=== PATIENT | male | born 1970 | race Caucasian/White ===

== ENCOUNTER 2021-09-09 16:38 | Emergency (ER) | payer OTHER, SELFPAY ==
--- NOTE | ~2021-09-09 | XR_ITS ---
XR knee LT 3V 09/09/2021 19:07 Indication: Left knee pain after twisting injury Procedure: 3 views left knee Comparison: 01/01/2015 Findings: There are surgical changes of ACL reconstruction. There is a large joint effusion. Mild-mod erate tricompartment osteoarthritis. No acute fracture or traumatic malalignment. There is a healed p roximal fibular fracture. Impression: 1: Large suprapatellar joint effusion. Reviewed, dictated and finalized at location A. Impression: 1: Large suprapatellar joint effusion.
[2021-09-09 17:24] VITALS: BP 134/83; PULSE 99; RESP 16; O2SAT 100
--- NOTE | 2021-09-09 19:30 | ED.GENADULT ---
HPI - General Adult General Chief complaint: Extremity Injury, Lower Stated complaint: L KNEE SWELLING [id number] Time Seen by Provider: 09/09/21 18:51 Source: patient Mode of arrival: ambulatory Limitations: no limitations History of Present Illness HPI narrative: Patient presents with chief complaint of left knee swelling intermittently over the past 5 years. Patient reports that he had ACL repair 30 years ago. He reports over the past 5 years he has had intermittent swelling and pain to his left knee. Patient reports he has not had a direct mechanism of injury however he does our work requires him to be up and down working all day. He reports that it puts a lot of strain on his knee. Patient reports he takes Lexapro for his anxiety but does not take any other daily medications. Patient denies any fevers, chills, nausea, vomiting, diarrhea or any other. Related Data Home Medications Medication Instructions Recorded Confirmed escitalopram oxalate mg 09/09/21 Allergies Allergy/AdvReac Type Severity Reaction Status Date / Time No Known Allergies Allergy Verified 09/09/21 19:26 Review of Systems Review of Systems: CONSTITUTIONAL: Denies fever, chills, or sweats. EYES: Denies visual changes, redness, or discharge. ENT: Denies rhinorrhea, congestion, sore throat, or otalgia. CARDIOVASCULAR: Denies chest pain, palpitations, or edema. RESPIRATORY: Denies cough or dyspnea. GASTROINTESTINAL: Denies abdominal pain, nausea, vomiting, or diarrhea. GENITOURINARY: Denies dysuria or hematuria. SKIN: Denies rash or itching. MUSCULOSKELETAL: Reports left knee pain denies back pain, joint pain, or myalgia. NEUROLOGIC: Denies headache, numbness, dizziness, or weakness. PSYCHIATRIC: Denies anxiety or depression. [facility] Family History Family History (Updated 07/10/14 @ 07:13 by DOCTOR UNKNOWN) Mother Family history of Parkinson's disease Family history of Alzheimer's disease Father Family history of heart disease in male family member before age 55 Other Family history of arthritis Family history of malignant neoplasm Social History Social History Smoking status: Heavy tobacco smoker Second hand tobacco smoke exposure: Yes Alcohol intake: current Exam Narrative: GENERAL: Well-appearing, well-nourished, and in no acute distress. HEAD: Normocephalic, atraumatic. EYES: PERRLA and EOMI. EXTREMITIES: Swelling to left knee. Patient reports decreased flexion and extension due to discomfort and pressure. There is not erythema or increased heat from the knee. Bursa appears to be swollen anteriorly. SKIN: Warm, dry, no rash. NEURO: No focal deficits. Alert and oriented x3. PSYCH: Normal mood and affect. Course Vital Signs Vital signs: Vital Signs Pulse Rate 99 09/09/21 17:24 Respiratory Rate 16 09/09/21 17:24 Blood Pressure 134/83 09/09/21 17:24 Pulse Oximetry 100 09/09/21 17:24 Pulse Rate 99 09/09/21 17:24 Respiratory Rate 16 09/09/21 17:24 Blood Pressure 134/83 09/09/21 17:24 Pulse Oximetry 100 09/09/21 17:24 Medical Decision Making MDM Narrative Medical decision making narrative: Discussed with the patient the need to follow industrial specialist for further evaluation and management of his symptoms. Instructed the patient to return to emergency department immediately if he develops any fever, chills, red, hot, streaking from his knee. Vital Signs Vital Signs: Vital Signs Pulse Rate 99 09/09/21 17:24 Respiratory Rate 16 09/09/21 17:24 Blood Pressure 134/83 09/09/21 17:24 Pulse Oximetry 100 09/09/21 17:24 Pulse Rate 99 09/09/21 17:24 Respiratory Rate 16 09/09/21 17:24 Blood Pressure 134/83 09/09/21 17:24 Pulse Oximetry 100 09/09/21 17:24 Imaging Data Radiologist's impression: ITS Impressions Knee X-Ray 09/09/21 19:09 Impression: 1: Large suprapatellar joint effusion. Discharge Plan Discharge Clinical Impres
[2021-09-09] MEDS: KETOROLAC 30 MG/ML VIAL (*BKC) IM (19:53)
== END 2021-09-09 20:24 | disposition home or self-care (01) ==
PROVIDERS: Emergency Provider Emergency Medicine
DX: M70.42 Prepatellar bursitis, left knee (principal); F17.200 Nicotine dependence, unspecified, uncomplicated
CPT/HCPCS: 73562; 96372; 99283; J1885

== ENCOUNTER 2021-09-19 11:42 | Emergency (ER) | payer OTHER, SELFPAY ==
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
--- NOTE | ~2021-09-19 | XR_ITS ---
EXAMINATION: XR_CERV2-3V_CR, XR thoracic spine 2V, XR lumbar spine 2-3V DATE: 09/19/2021 13:15 INDICATION: Neck and back pain TECHNIQUE: 1. AP, lateral and odontoid views of the cervical spine were obtained. 2. AP, lateral and lateral swimmers views of the thoracic spine were obtained. 3. AP, lateral and cone-down lateral lumbosacral views of the lumbar spine were obtained. COMPARISON: CT cervical spine and chest radiograph dated 01/04/[address] abdomen and pelvis and AP a nd lateral chest radiographs dated 05/11/2018 FINDINGS: Cervical spine: New 2-3 mm anterolisthesis C4 on C5 with associated mild kyphosis. There are compression fractures of the anterior superior endplates of both C5 and C6 with mild anterior vertebral body height loss at b oth levels which are new since the prior CT. Mild to moderate disc height loss at both levels. Dens i s intact. Prevertebral soft tissues are normal. Thoracic spine: 17 degree mid thoracic dextroscoliosis with mild compensatory levocurvature in the upper thoracic and lumbosacral spine. Unchanged mild left-sided vertebral body height loss at T6 and T7. Chronic mild a nterior wedging at T12 but with increased mild right-sided vertebral body height loss which appears n ew since 01/04/2019. Thoracic disc spaces are normal. Paravertebral soft tissues and visualized lungs are unremarkable. No pleural effusion or pneumothorax. Cardiomediastinal silhouette is normal. Jaye cystectomy clips in the right upper quadrant. Lumbar spine: Mild lumbar dextrocurvature. Minimal retrolisthesis L2 on L3, L3 on L4 and L4 on L5 and mild retrolis thesis of L5 on S1 of which appear unchanged since CT dated . Chronic L1 compression fractur e with 20% anterior vertebral body height loss. Mild disc height loss at L1-L2 through L4-L5. Sacrum and bilateral sacralized joints are unremarkable. Mild bilateral hip osteoarthritis. IMPRESSION: 1. Mild cervical and lumbar spondylosis. 2. Mild midthoracic dextroscoliosis. 3. A few chronic appearing mild compression fractures in the lower cervical, lower thoracic and upper lumbar spine as detailed above, a few of which appear new since the studies performed over 2 years p rior. Reviewed, dictated and finalized at location A. NERATOR OPERATOR IMPRESSION: 1. Mild cervical and lumbar spondylosis. 2. Mild midthoracic dextroscoliosis. 3. A few chronic appearing mild compression fractures in the lower cervical, lo wer thoracic and upper lumbar spine as detailed above, a few of which appear ne w since the studies performed over 2 years prior. IMPRESSION: 1. Mild cervical and lumbar spondylosis. 2. Mild midthoracic dextroscoliosis. 3. A few chronic appearing mild compression fractures in the lower cervical, lo wer thoracic and upper lumbar spine as detailed above, a few of which appear ne w since the studies performed over 2 years prior.
[2021-09-19 11:43] VITALS: BP 128/74; PULSE 97; RESP 13; TEMP 36.6; O2SAT 100
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
[2021-09-19 13:37] LABS: Basophils Percent Auto 0.3 % (0.2-1.2); Eosinophils Absolute Auto 0.2 K/mm3 (0-0.3); Eosinophils Percent Auto 1.7 % (0-4.4); Hematocrit 40.6 % (42.0-52.0); Hemoglobin 13.9 g/dL (14.0-18.0); Immature Granulocyte Absolute 0.03 K/mm3 (0.00-0.031); Immature Granulocyte Percent A 0.3 % (0-0.5); Lymphocytes Absolute Auto 1.95 K/mm3 (0.9-3.2); Lymphocytes Percent Auto 19.9 % (18.3-44.2); Mean Corpuscular HGB Conc 34.2 g/dl (32-36); Mean Corpuscular Hemoglobin 31.1 pg (26-34); Mean Corpuscular Volume 90.8 fl (80-100); Mean Platelet Volume 8.1 fl (7.4-10.4); Monocytes Absolute Auto 0.8 K/mm3 (0.1-0.6); Monocytes Percent Auto 7.8 % (2.6-8.5); Neutrophils Absolute Auto 6.9 K/mm3 (1.3-6.7); Platelet Count Result 348 k/mm3 (150-375); Red Blood Count 4.47 M/mm3 (4.6-6.20); Red Cell Distribution Width 14.5 % (11.5-14.5); White Blood Count 9.8 K/mm3 (4.5-10.0)
[2021-09-19 13:48] LABS: Alanine Aminotransferase 17 U/L (4-50); Albumin Level 4.4 g/dL (3.5-5.1); Alkaline Phosphatase 79 U/L (38-126); Anion Gap 11 mmol/L (8-16); Aspartate Amino Transferase 28 U/L (17-59); Bilirubin,Total 0.6 mg/dL (0.2-1.3); Blood Urea Nitrogen 8 mg/dL (9-20); Calcium 9.2 mg/dL (8.4-10.2); Carbon Dioxide 21 mmol/L (22-30); Chloride 104 mmol/L (98-107); Estimated CRCL calculation 104 ml/min; Estimated Glomerular Filt Rate > 60; Glucose 89 mg/dL (65-110); Potassium 3.8 mmol/L (3.4-5.0); Sodium 136 mmol/L (137-145)
[2021-09-19 14:10] VITALS: BP 136/92; PULSE 88; RESP 16; O2SAT 97
[2021-09-19 15:55] VITALS: BP 152/68; PULSE 90; RESP 16; O2SAT 99
[2021-09-19 16:10] LABS: Add Urine Microscopic? NO; Appearance Urine Clear (Clear); Bilirubin Urine Negative (Negative); Blood Urine Negative (Negative); Color Urine Yellow (Yellow); Glucose Urine UA Negative (Negative); Ketones Urine Negative (Negative); Leukocyte Esterase Ur Negative LEU/UL (Negative); Nitrate Urine Negative (Negative); Protein Urine Negative (Negative); Specific Grav Ur 1.009 (1.001-1.035); Urobilinogen Urine Negative mg/dL (<2.0)
[2021-09-19] MEDS: SODIUM CHLORIDE 0.9% IV 1,000 ML 999 ML IV CONT (16:17)
[2021-09-19] MEDS: MORPHINE SULFATE (*CRX) 4 MG/ML INJ IV PUSH ×2 (16:18→20:41)
--- NOTE | 2021-09-19 19:59 | PC.NURSE ---
RN made call to pts daughter, Dominique, to pick him up, but unable to get in touch with family or leave message. states that call can not be completed at this time.
--- NOTE | 2021-09-19 20:05 | PC.NURSE ---
was able to get new phone number for daughter [phone], and able to get in contact with her. will be ready in approx 15min
[2021-09-19 20:45] VITALS: BP 120/91; PULSE 122; RESP 28; O2SAT 98
--- NOTE | 2021-09-19 20:48 | PC.NURSE ---
when RN went to take D/C vitals prior to D/C from ER, RN noted that HR was 120. double checked with Dr. Vinson, new order for Morphine IV due to increased pain to L shoulder. Rn called daughter and told her that he was not ready for D/C yet and Rn will call once vitals are WNL and pain better.
[2021-09-19 21:56] VITALS: BP 140/80; PULSE 97; RESP 14; O2SAT 100
--- NOTE | 2021-09-19 21:57 | PC.NURSE ---
called daughter to picker operator, pt waiting in waiting room in W/C.
== END 2021-09-19 21:58 | disposition home or self-care (01) ==
PROVIDERS: Emergency Provider Emergency Medicine
DX: S22.42XA Multiple fractures of ribs, left side, initial encounter for closed fracture (principal); S42.022A Displaced fracture of shaft of left clavicle, initial encounter for closed fracture; M47.812 Spondylosis without myelopathy or radiculopathy, cervical region; M47.816 Spondylosis without myelopathy or radiculopathy, lumbar region; M16.0 Bilateral primary osteoarthritis of hip; K57.90 Diverticulosis of intestine, part unspecified, without perforation or abscess without bleeding; N40.0 Benign prostatic hyperplasia without lower urinary tract symptoms; V13.4XXA Pedal cycle driver injured in collision with car, pick-up truck or van in traffic accident, initial encounter; Y93.55 Activity, bike riding; F17.200 Nicotine dependence, unspecified, uncomplicated
CPT/HCPCS: 36415; 70450; 72040; 72070; 72100; 72125; 73030; 74177; 80053; 81003; 85025; 96361; 96374; 96376; 99284; A4565; J2270; J7030; Q9967

== ENCOUNTER 2022-03-09 16:59 | Emergency (ER) | payer OTHER, SELFPAY ==
[2022-03-09 17:05] VITALS: BP 119/91; PULSE 107; RESP 20; TEMP 36.5; O2SAT 100
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
[2022-03-09] MEDS: predniSONE 20 MG TABLET 40 MG PO (18:20)
[2022-03-09] MEDS: diphenhydrAMINE HCl CAP 25 MG CAPSULE 50 MG PO (18:20)
== END 2022-03-09 18:49 | disposition home or self-care (01) ==
PROVIDERS: Emergency Provider Nurse Practitioner Family; PCP Physician Assistant
DX: L23.7 Allergic contact dermatitis due to plants, except food (principal); F17.200 Nicotine dependence, unspecified, uncomplicated
CPT/HCPCS: 99283; A9270; J7512

== ENCOUNTER → 2023-04-07 16:11 | Outpatient (CLI) | payer OTHER, SELFPAY ==
--- NOTE | ~2023-04-07 | XR_ITS ---
EXAMINATION: XR chest 2V DATE: 04/07/2023 16:28 INDICATION: Rheumatoid arthritis. Smoker. TECHNIQUE: Frontal and lateral views of the chest were obtained. COMPARISON: Chest single view 01/04/2019, CT abdomen and pelvis 09/19/21 FINDINGS: A calcified right lung nodule is consistent with old granulomatous disease. No pleural effu evon or pneumothorax. The heart size is normal. There are old healed left rib fractures. There is a c hronic compression fracture of T12. There is an old healed fracture of left clavicle. IMPRESSION: 1. No acute cardiopulmonary disease. Reviewed, dictated and finalized at location E.
== END ==
PROVIDERS: PCP Physician Assistant; Visit Provider Physician Assistant
DX: M06.9 Rheumatoid arthritis, unspecified (principal)
CPT/HCPCS: 71046

== ENCOUNTER 2023-05-12 17:37 | Emergency (ER) | payer OTHER, SELFPAY ==
--- NOTE | 2023-05-12 17:47 | ED.SKABFB ---
HPI - Skin/Abscess/Foreign Bdy General Chief complaint: Skin/Abscess/Foreign Body Stated complaint: rash on body Time Seen by Provider: 05/12/23 17:47 Source: patient, RN notes reviewed and old records reviewed Mode of arrival: ambulatory Limitations: no limitations History of Present Illness HPI narrative: 52-year-old male presents to the [facility] with red rash to his face, neck and bilateral arms. Patient is not giving a full history, anxious. History of poison chelo per record Attempted to explain to patient that we need to complete a medical record and we need questions answered. Patient unsure of past medical or surgical history. Not sure of medication he takes. Has not taken anything for the itching. States the red rash started this morning States he was pulling weeds and was sweating too much yesterday Treatments prior to arrival: none Related Data Allergies Allergy/AdvReac Type Severity Reaction Status Date / Time No Known Allergies Allergy Verified 05/12/23 17:38 Review of Systems Review of Systems: All systems reviewed & are unremarkable except as noted in HPI and below Constitutional: Constitutional: Reports no additional constitutional complaints Eyes: Eyes: Reports no additional eye complaints ENT: Reports system reviewed and no additional complaints, except as documented Cardiovascular: Cardiovascular: Reports no additional cardiovascular complaints, Denies chest pain and Denies dyspnea Respiratory: Respiratory: Reports no additional respiratory complaints, Denies chest congestion, Denies cough and Denies dyspnea Gastrointestinal: Gastrointestinal: Reports no additional gastrointestinal complaints, Denies abdominal pain, Denies nausea and Denies vomiting Musculoskeletal: Musculoskeletal: Reports no additional musculoskeletal complaints Integumentary/Breasts: Skin/Breast: Reports as per HPI Neurologic: Reports system reviewed and no additional complaints, except as documented Psychiatric: Psychiatric: Reports no additional psychiatric complaints Allergic/Immunologic: Allergic/Immunologic: Reports no additional allergic/immunologic complaints [facility] Family History Family History Mother Family history of Parkinson's disease Family history of Alzheimer's disease Father Family history of heart disease in male family member before age 55 Other Family history of arthritis Family history of malignant neoplasm Social History Social History Smoking status: Heavy tobacco smoker Second hand tobacco smoke exposure: Yes Alcohol intake: current Comments At the time of my signature, I reviewed and agree with the nursing past medical, surgical, social, and family history. There is no relevant family history pertinent to the patient complaint. Exam Const: General: healthy appearing, no acute distress, well developed, alert, anxious and well nourished Nutritional Appearance: well nourished Orientation/consciousness: patient oriented x3 Limitations: no limitations HENMT: Head: normal to inspection, no abrasions and no lacerations Ears: hearing grossly normal bilaterally, external ears normal, TM's normal bilaterally and EAC's normal Face/Nose/Sinus: Normal external nose present, Normal nares present, Normal nasal mucous membranes and turbinates present, No nasal discharge present and normal facial exam Face and sinus: normal facial exam, face symmetric and no tenderness Mouth: Yes Normal oral and palatal mucosa present, Yes lip normal, Yes tongue normal, Yes moist mucous membranes and No muffled voice Throat: posterior oropharynx normal, uvula midline and no uvular edema Eyes: General: appearance normal, both eyes and all related structures Visual Veloz: normal visual veloz by confrontation Alignment and Position: alignment normal Pupils: Equal, round and reactive pupils present EOM: EOMs
[2023-05-12 17:49] VITALS: BP 128/111; PULSE 79; RESP 16; TEMP 36.4; O2SAT 98
== END 2023-05-12 18:00 | disposition home or self-care (01) ==
PROVIDERS: Emergency Provider Nurse Practitioner; PCP Physician Assistant
DX: L25.9 Unspecified contact dermatitis, unspecified cause (principal); F17.200 Nicotine dependence, unspecified, uncomplicated
CPT/HCPCS: 99213; G0463

== ENCOUNTER 2023-07-06 11:22 | Emergency (ER) | payer OTHER, SELFPAY ==
--- NOTE | 2023-07-06 11:24 | ED.SKABFB ---
HPI - Skin/Abscess/Foreign Bdy General Chief complaint: Skin/Abscess/Foreign Body Stated complaint: Rash Time Seen by Provider: 07/06/23 11:23 Source: patient Mode of arrival: ambulatory Limitations: no limitations History of Present Illness HPI narrative: Patient is a 53-year-old male that presents with rash all over body but primarily right beck. Reports it itches and continues to spread. Patient states for 5 days ago he was out pulling weeds and rash started that night. Patient has history of poison chelo and poison sumac rashes. Patient has been using calamine lotion and Benadryl with mild relief. Patient also does not have running water at his house at this time. Patient is a poor historian denies any shortness of breath Related Data Home Medications Medication Instructions Recorded Confirmed escitalopram oxalate 20 mg tablet mg 07/06/23 07/06/23 Allergies Allergy/AdvReac Type Severity Reaction Status Date / Time No Known Allergies Allergy Verified 07/06/23 11:27 Review of Systems Review of Systems: All systems reviewed & are unremarkable except as noted in HPI and below Constitutional: Constitutional: Denies body ache(s), Denies chills, Denies fatigue, Denies fever(s), Denies headache(s), Denies malaise and Denies weakness Eyes: Eyes: Denies blurry vision, Denies irritation and Denies loss of vision ENT: Denies otalgia, Denies headache(s), Denies nasal discharge, Denies sinus pain and Denies sore throat Cardiovascular: Cardiovascular: Denies chest pain, Denies irregular heart rhythm and Denies dyspnea Respiratory: Respiratory: Denies dyspnea Gastrointestinal: Gastrointestinal: Denies abdominal pain, Denies melena, Denies hematochezia, Denies diarrhea, Denies nausea and Denies vomiting Musculoskeletal: Musculoskeletal: Denies back pain, Denies myalgias and Denies arthralgias Integumentary/Breasts: Skin/Breast: Reports pruritus and Reports rash Neurologic: Denies headache(s), Denies loss of vision and Denies weakness Psychiatric: Psychiatric: Reports no additional psychiatric complaints Endocrine: Endocrine: Denies fatigue [facility] Family History Family History Mother Family history of Parkinson's disease Family history of Alzheimer's disease Father Family history of heart disease in male family member before age 55 Other Family history of arthritis Family history of malignant neoplasm Social History Social History Smoking status: Heavy tobacco smoker Second hand tobacco smoke exposure: Yes Alcohol intake: current Comments At time of signature, agree with nursing past medical, surgical, social and family history. There is no relevant family history pertinent to the presenting complaint. Exam Const: General: cooperative, healthy appearing, comfortable, no acute distress and well nourished Nutritional Appearance: well nourished Orientation/consciousness: patient oriented x3 Limitations: no limitations HENMT: Head: normal to inspection, normocephalic and atraumatic Ears: hearing grossly normal bilaterally and external ears normal Face/Nose/Sinus: Normal external nose present, normal facial exam and face symmetric Face and sinus: normal facial exam and face symmetric Mouth: Yes lip normal Eyes: General: appearance normal, both eyes and all related structures Alignment and Position: alignment normal and position normal Periorbital: periorbital findings normal Eyelids: eyelids normal Pupils: Equal, round and reactive pupils present EOM: EOMs intact bilaterally Neck: Neck: normal visual inspection, full ROM and supple Chest: Chest palpation & inspection: normal inspection of the chest Resp: Effort & Inspection: normal respiratory effort and able to speak in complete sentences Auscultation: clear to auscultation bilaterally Cardio: Rate: regular rate Rhythm: regular rhy
[2023-07-06 11:28] VITALS: BP 103/76; PULSE 104; RESP 16; TEMP 37.3; O2SAT 100
== END 2023-07-06 11:49 | disposition home or self-care (01) ==
PROVIDERS: Emergency Provider Nurse Practitioner Family
DX: L23.7 Allergic contact dermatitis due to plants, except food (principal); F17.200 Nicotine dependence, unspecified, uncomplicated; F41.9 Anxiety disorder, unspecified; F32.A Depression, unspecified; M19.90 Unspecified osteoarthritis, unspecified site
CPT/HCPCS: 99213; G0463

== ENCOUNTER 2023-10-30 10:02 | Emergency (ER) | payer OTHER, SELFPAY ==
--- NOTE | ~2023-10-30 | CT_ITS ---
EXAMINATION: CT cervical spine wo con DATE: 10/30/2023 11:55 INDICATION: Head injury TECHNIQUE: Computed tomography (CT) of the cervical spine was performed without intravenous contrast. The dose-length product (DLP) was 210.98 mGy-cm. Automated exposure control and iterative reconstruc tion technique were employed. COMPARISON: 09/19/2021 FINDINGS: Kyphosis of the cervical spine is again noted. There are 2 mm of stable anterolisthesis of C3 on C4. There is moderate loss of intervertebral disc space height at C4-5 and C5-C6. There is no f racture. The odontoid process is intact. There is multilevel moderate facet and uncovertebral joint o steoarthritis. Prevertebral soft tissues are normal. IMPRESSION: 1. Mild cervical spondylosis without acute findings or significant interval change. Reviewed, dictated and finalized at location B. LICENSED NUCLEAR PLANT OPERATOR IMPRESSION: 1. Mild cervical spondylosis without acute findings or significant interval boo nge.
--- NOTE | ~2023-10-30 | CT_ITS ---
EXAMINATION: CT brain wo con INDICATION: Head injury COMPARISON: 09/19/2021 TECHNIQUE: Standard unenhanced head CT. The dose-length product (DLP) was 605.33 mGy-cm. The mA was a djusted according to patient size. Iterative reconstruction technique was employed. FINDINGS: No intracranial hemorrhage, acute infarction, or abnormal mass lesion. The ventricles are n ormal. No abnormal mass effect or midline shift. The hobbs-white matter differentiation is normal. The basal cisterns are patent. The orbits are normal. There is a left parietal scalp hematoma. There is near complete opacification of the frontal sinuses and ethmoidal air cells. There is moderate opacifi cation of the bilateral maxillary sinuses and the sphenoid sinuses. IMPRESSION: 1. No acute intracranial abnormality. 2. Pansinusitis. Reviewed, dictated and finalized at location B. ILE TECHNICAL OFFICER
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
--- NOTE | ~2023-10-30 | XR_ITS ---
EXAMINATION: XR hip RT 2V w AP pelvis INDICATION: Right hip pain TECHNIQUE: AP view of the pelvis and two views of the right hip are obtained. COMPARISON: 03/19/2015 FINDINGS: Bone alignment is normal. There is no fracture. There is mild osteoarthritis of the hips. IMPRESSION: 1. Mild osteoarthritis of the hips. Reviewed, dictated and finalized at location B. LAND FIREFIGHTER
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
[2023-10-30 10:05] VITALS: BP 94/66; PULSE 99; RESP 18; TEMP 37.1; O2SAT 100
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
== END 2023-10-30 12:44 | disposition home or self-care (01) ==
PROVIDERS: Emergency Provider Physician Assistant; PCP Internal Medicine
DX: S86.912A Strain of unspecified muscle(s) and tendon(s) at lower leg level, left leg, initial encounter (principal); S09.90XA Unspecified injury of head, initial encounter; V19.9XXA Pedal cyclist (driver) (passenger) injured in unspecified traffic accident, initial encounter
CPT/HCPCS: 70450; 72125; 73502; 73564; 99284

== ENCOUNTER 2024-01-01 17:24 | Emergency (ER) | payer OTHER, SELFPAY ==
--- NOTE | ~2024-01-01 | XR_ITS ---
EXAM: XR hip BI 2V w AP pelvis DATE: 01/01/2024 19:06 HISTORY: pain right hip hurts worse than the left no injury . COMPARISON: 10/30/2023. FINDINGS: Normal mineralization. No fracture or dislocation. No lytic or blastic lesion. Lumbar dege nerative disc disease. Moderate right and mild left hip osteoarthritis. No erosion or periosteal hinojosa ge. Soft tissues within normal limits. IMPRESSION: No acute osseous finding in the pelvis or bilateral hips. Reviewed, dictated and finalized at location K. RY CAR DRIVER
--- NOTE | ~2024-01-01 | XR_ITS ---
EXAM: XR foot LT 2V DATE: 01/01/2024 19:06 HISTORY: pain . COMPARISON: None available. FINDINGS: Normal mineralization. No fracture or dislocation. No lytic or blastic lesion. Joint space s are maintained. Plantar enthesopathy. No erosion or periosteal change. Forefoot soft tissue swellin g. IMPRESSION: No acute osseous finding in the left foot. Reviewed, dictated and finalized at location K. ET ASSISTANT PRESS OPERATOR
[2024-01-01 18:01] VITALS: BP 126/82; PULSE 114; RESP 20; TEMP 36.4; O2SAT 98
--- NOTE | 2024-01-01 18:27 | ED.GENADULT ---
HPI - General Adult General Chief complaint: Back Pain/Injury <Niyah Sol, SOFTWARE ENGINEER WEB APPLICATIONS - Last Filed: 01/01/24 18:33> Stated complaint: back pain <Niyah Jenkins March, SOFTWARE ENGINEER WEB APPLICATIONS - Last Filed: 01/01/24 18:33> Time Seen by Provider: 01/01/24 18:28 <Niyah Jenkins March, SOFTWARE ENGINEER WEB APPLICATIONS - Last Filed: 01/01/24 18:33> Focused HPI: Kamron Pate is a 53 y/o male who presents with reports of having pain to his right hip for about a week - he states that he dislocated it when he was in his 20's. He states the pain is really bad when he tries to walk or when he first gets up. He has not taken anything for pain today He rates his pain at a 7 or 8/10 pain is non radiating. Patient also would like his left foot looked at. He states that it started to get swollen and painful yesterday - he states hx of Gout and feels like that but he states he has never had this much swelling with it Denies any trauma or injury to foot. GENERAL: Well-appearing, well-nourished, and in no acute distress. HEAD: Normocephalic, atraumatic. CHEST: Clear to auscultation. ?No respiratory distress. HEART: Regular rate and rhythm.? NEURO: ?Alert and oriented x3. Patient screened in triage and initial orders placed.? ?Additional care and disposition to be based upon?diagnostic testing and treatment. <Niyah Jenkins March, SOFTWARE ENGINEER WEB APPLICATIONS - Last Filed: 01/01/24 18:33> History of Present Illness HPI narrative: 53-year-old male with a reported history of gout reports for evaluation for right hip pain that started about 1 week ago. Patient states he dislocated his hip and his anger and since then has had chronic hip pain. States it is worse in the past week because he ?irritated?. He is unsure how. States it hurts worse when he walks but is currently not hurting. Denies radiating pain. He is also reporting pain and swelling in his left foot that started a couple days ago. Denies injury. States it feels like prior gout attacks. States he drinks beer. <Sushila Hernandez PA-C - Last Filed: 01/01/24 23:21> Related Data Home medications: Home Medications Medication Instructions Recorded Confirmed escitalopram oxalate 20 mg tablet mg 07/06/23 07/06/23 <Niyah Sol, SOFTWARE ENGINEER WE[employer]PLICATIONS - Last Filed: 01/01/24 18:33> Allergies/adverse reactions: Allergies Allergy/AdvReac Type Severity Reaction Status Date / Time No Known Allergies Allergy Verified 01/01/24 22:01 <Niyah Sol, SOFTWARE ENGINEER WE[employer] APPLICATIONS - Last Filed: 01/01/24 18:33> Review of Systems Review of Systems: CONSTITUTIONAL: Denies fever, chills, or sweats. EYES: Denies visual changes, redness, or discharge. ENT: Denies rhinorrhea, congestion, sore throat, or otalgia. CARDIOVASCULAR: Denies chest pain, palpitations, or edema. RESPIRATORY: Denies cough or dyspnea. GASTROINTESTINAL: Denies abdominal pain, nausea, vomiting, or diarrhea. GENITOURINARY: Denies dysuria or hematuria. SKIN: Denies rash or itching. MUSCULOSKELETAL: See HPI NEUROLOGIC: Denies headache, numbness, or weakness. PSYCHIATRIC: Denies anxiety or depression. <Sushila Hernandez PA-C - Last Filed: 01/01/24 23:21> PMFSH Family History Family History: Family History Mother Family history of Parkinson's disease Family history of Alzheimer's disease Father Family history of heart disease in male family member before age 55 Other Family history of arthritis Family history of malignant neoplasm <Niyah Sol, - Last Filed: 01/01/24 18:33> Social History Social History: Social History Smoking status: Heavy tobacco smoker Second hand tobacco smoke exposure: Yes Alcohol intake: current <Niyah Sol, SOFTWARE ENGINEER WE[employer] APPLICATIONS - Last Filed: 01/01/24 18:33> Exam Narrative: GENERAL: Well-appearing, well-nourished, and in no acute distress. HEAD: Normocephalic, atraumatic. EYES: PERRLA and EOMI. ENT: Nares clear, no rhinorrhea or epistaxis. Mucous
[2024-01-01] MEDS: KETOROLAC 30 MG/ML VIAL (*BKC) IM (18:46)
[2024-01-01] MEDS: ACETAMINOPHEN 500 MG TABLET 1000 MG PO (18:46)
[2024-01-01] MEDS: CYCLOBENZAPRINE HCL 10 MG TABLET PO (18:47)
[2024-01-01 18:50] VITALS: BP 130/86; PULSE 100; RESP 17; O2SAT 100
[2024-01-01 22:27] LABS: Basophils Percent Auto 0.4 % (0.2-1.2); Eosinophils Absolute Auto 0.1 K/mm3 (0-0.3); Eosinophils Percent Auto 1.6 % (0-4.4); Hematocrit 34.5 % (42.0-52.0); Hemoglobin 11.6 g/dL (14.0-18.0); Immature Granulocyte Absolute 0.02 K/mm3 (0.00-0.031); Immature Granulocyte Percent A 0.4 % (0-0.5); Lymphocytes Absolute Auto 1.91 K/mm3 (0.9-3.2); Lymphocytes Percent Auto 33.7 % (18.3-44.2); Mean Corpuscular HGB Conc 33.6 g/dl (32-36); Mean Corpuscular Hemoglobin 29.7 pg (26-34); Mean Corpuscular Volume 88.2 fl (80-100); Mean Platelet Volume 8.5 fl (7.4-10.4); Monocytes Absolute Auto 0.8 K/mm3 (0.1-0.6); Monocytes Percent Auto 13.4 % (2.6-8.5); Neutrophils Absolute Auto 2.9 K/mm3 (1.3-6.7); Neutrophils Percent Auto 50.5 % (45.5-73.1); Platelet Count Result 319 k/mm3 (150-375); Red Blood Count 3.91 M/mm3 (4.6-6.20); Red Cell Distribution Width 12.3 % (11.5-14.5); White Blood Count 5.7 K/mm3 (4.5-10.0)
[2024-01-01 22:45] LABS: Anion Gap 6 mmol/L (8-16); Blood Urea Nitrogen 18 mg/dL (9-20); Carbon Dioxide 26 mmol/L (22-30); Chloride 100 mmol/L (98-107); Estimated CRCL calculation 78 ml/min; Estimated Glomerular Filt Rate > 60; Glucose 107 mg/dL (65-110); Potassium 3.8 mmol/L (3.4-5.0); Sodium 132 mmol/L (137-145); Uric Acid 4.5 mg/dL (3.5-8.5)
== END 2024-01-01 23:27 | disposition home or self-care (01) ==
PROVIDERS: Nurse Practitioner Family; Emergency Provider Physician Assistant; PCP Internal Medicine
DX: G57.01 Lesion of sciatic nerve, right lower limb (principal); M10.9 Gout, unspecified; F17.200 Nicotine dependence, unspecified, uncomplicated
CPT/HCPCS: 36415; 73521; 73620; 80048; 84550; 85025; 96372; 99284; A9270; J1885

== ENCOUNTER 2024-01-10 05:07 | Emergency (ER) | payer OTHER, SELFPAY ==
--- NOTE | ~2024-01-10 | XR_ITS ---
Left foot Technique: AP, oblique, and lateral views were obtained. Clinical History: Pain and swelling Findings: Suspected fracture the plantar aspect of the base of the second proximal phalanx.. Joint sp aces are preserved without erosive or degenerative change. Soft tissues are unremarkable. Impression: Suspected fracture the plantar aspect of the base of second proximal phalanx. Correlate for point ten derness. Reviewed, dictated and finalized at location . R GRINDER OPERATOR Impression: Suspected fracture the plantar aspect of the base of second proximal phalanx. C orrelate for point tenderness.
--- NOTE | ~2024-01-10 | XR_ITS ---
Right wrist Technique: PA, oblique, lateral, and ulnar deviation views were obtained. Clinical History: Pain COMPARISON: 11/27/2017 Findings: Patient is status post prior ORIF of the scaphoid. There is linear lucency through the prox imal third of the scaphoid. Additional orthopedic hardware present at the fifth metacarpal. Osseous a lignment is unchanged from prior exam. There are mild degenerative change of the first CMC joint and triscaphe joint. Soft tissues are unremarkable. Impression: Fracture line through the proximal third of the scaphoid with prior ORIF of the scaphoid. It is somew hat unclear whether this represents chronic nonunited fracture versus new acute fracture of the scaph oid. Correlate for anatomic snuffbox tenderness. Reviewed, dictated and finalized at [facility]. 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 It is somewhat unclear whether this represents chronic nonunited fra cture versus new acute fracture of the scaphoid. Correlate for anatomic snuffbo x tenderness.
[2024-01-10 05:06] VITALS: BP 105/64; PULSE 82; RESP 18; TEMP 36.9; O2SAT 100
[2024-01-10 05:15] VITALS: BP 105/64; PULSE 81; RESP 18; TEMP 36.9; O2SAT 100
--- NOTE | 2024-01-10 06:02 | ED.GENADULT ---
HPI - General Adult General Chief complaint: Extremity Injury, Upper Stated complaint: swollen wrist Time Seen by Provider: 01/10/24 05:20 History of Present Illness HPI narrative: Patient is a 53-year-old gentleman who presents emerged from with chief complaint of fall. Patient reports he tripped and fell in the month he has the new left foot and his right wrist. Patient denies head injury denies loss of consciousness reports the pain with range of motion Related Data Home Medications Medication Instructions Recorded Confirmed escitalopram oxalate 20 mg tablet mg 07/06/23 07/06/23 Allergies Allergy/AdvReac Type Severity Reaction Status Date / Time No Known Allergies Allergy Verified 01/01/24 22:01 Review of Systems Review of Systems: A 10 system review of systems was completed on the patient and is negative except for what is stated in the HPI. Nursing and ancillary documentation was reviewed. [facility] Family History Family History Mother Family history of Parkinson's disease Family history of Alzheimer's disease Father Family history of heart disease in male family member before age 55 Other Family history of arthritis Family history of malignant neoplasm Social History Social History Smoking status: Heavy tobacco smoker Second hand tobacco smoke exposure: Yes Alcohol intake: current Exam Narrative: GENERAL: Well-appearing, well-nourished, and in no acute distress. HEAD: Normocephalic, atraumatic. EYES: PERRLA and EOMI. ENT: Nares clear, no rhinorrhea or epistaxis. Mucous membranes moist. NECK: Supple. CHEST: Clear to auscultation. No respiratory distress. HEART: Regular rate and rhythm. No murmur heard. Normal peripheral pulses. ABDOMEN: Soft, nontender, nondistended, normal active bowel sounds. EXTREMITIES: Normal range of motion. No edema. Tenderness palpation the right wrist left foot SKIN: Warm, dry, no rash. NEURO: No focal deficits. Alert and oriented x3. PSYCH: Normal mood and affect. Course Vital Signs Vital signs: Vital Signs Temperature 36.9 C 01/10/24 05:06 Pulse Rate 82 01/10/24 05:06 Respiratory Rate 18 01/10/24 05:06 Blood Pressure 105/64 01/10/24 05:06 Pulse Oximetry 100 02/28/24 05:06 Oxygen Delivery Room Air 01/10/24 05:06 Temperature 36.9 C 01/10/24 05:15 Pulse Rate 81 01/10/24 05:15 Respiratory Rate 18 01/10/24 05:15 Blood Pressure 105/64 01/10/24 05:15 Pulse Oximetry 100 01/10/24 05:15 Oxygen Delivery Room Air 01/10/24 05:06 Medical Decision Making [facility] Narrative Medical decision making narrative: Differential diagnosis includes fracture, contusion, sprain X-ray of the left foot shows evidence of a 2nd proximal phalanx fracture. Wrist x-ray shows a possible scaphoid fracture The patient will be placed in a postop shoe and also placed a thumb spica splint patient will be referred to Orthopedics Vital Signs Vital Signs: Vital Signs Temperature 36.9 C 01/10/24 05:06 Pulse Rate 82 01/10/24 05:06 Respiratory Rate 18 01/10/24 05:06 Blood Pressure 105/64 01/10/24 05:06 Pulse Oximetry 100 01/10/24 05:06 Oxygen Delivery Room Air 01/10/24 05:06 Temperature 36.9 C 01/10/24 05:15 Pulse Rate 81 01/10/24 05:15 Respiratory Rate 18 01/10/24 05:15 Blood Pressure 105/64 01/10/24 05:15 Pulse Oximetry 100 01/10/24 05:15 Oxygen Delivery Room Air 01/10/24 05:06 Discharge Plan Discharge Clinical Impression: Fracture of scaphoid Qualifiers: Encounter type: initial encounter Scaphoid bone location: unspecified portion of scaphoid Fracture type: closed Fracture alignment: nondisplaced Laterality: right Qualified Code(s): S62.001A - Unspecified fracture of navicular [scaphoid] bone of right wrist, initial encounter for closed fracture
[2024-01-10] MEDS: HYDROcodone/acetaminophen (*CRX) 5-325 MG TABLET 1 TAB PO (06:57)
== END 2024-01-10 07:00 | disposition home or self-care (01) ==
PROVIDERS: Emergency Provider Emergency Medicine; PCP Internal Medicine
DX: S62.031A Displaced fracture of proximal third of navicular [scaphoid] bone of right wrist, initial encounter for closed fracture (principal); S92.515A Nondisplaced fracture of proximal phalanx of left lesser toe(s), initial encounter for closed fracture; F17.200 Nicotine dependence, unspecified, uncomplicated; W01.0XXA Fall on same level from slipping, tripping and stumbling without subsequent striking against object, initial encounter
CPT/HCPCS: 29125; 73110; 73630; 99284; A4565; A9270

== ENCOUNTER 2024-01-26 15:15 | Emergency (ER) | payer OTHER, MEDICAID, SELFPAY ==
[2024-01-26 15:16] VITALS: BP 116/72; PULSE 98; RESP 19; TEMP 36.4; O2SAT 99
[2024-01-26 15:59] LABS: Basophils Percent Auto 0.3 % (0.2-1.2); Eosinophils Absolute Auto 0.1 K/mm3 (0-0.3); Eosinophils Percent Auto 0.9 % (0-4.4); Hematocrit 33.8 % (42.0-52.0); Hemoglobin 11.4 g/dL (14.0-18.0); Immature Granulocyte Absolute 0.04 K/mm3 (0.00-0.031); Immature Granulocyte Percent A 0.5 % (0-0.5); Lymphocytes Absolute Auto 1.66 K/mm3 (0.9-3.2); Lymphocytes Percent Auto 21.9 % (18.3-44.2); Mean Corpuscular HGB Conc 33.7 g/dl (32-36); Mean Corpuscular Hemoglobin 29.2 pg (26-34); Mean Corpuscular Volume 86.4 fl (80-100); Mean Platelet Volume 8.6 fl (7.4-10.4); Monocytes Absolute Auto 0.7 K/mm3 (0.1-0.6); Neutrophils Absolute Auto 5.1 K/mm3 (1.3-6.7); Neutrophils Percent Auto 67.4 % (45.5-73.1); Platelet Count Result 424 k/mm3 (150-375); Red Blood Count 3.91 M/mm3 (4.6-6.20); Red Cell Distribution Width 13.1 % (11.5-14.5); White Blood Count 7.6 K/mm3 (4.5-10.0)
[2024-01-26 16:11] LABS: Uric Acid 5.9 mg/dL (3.5-8.5)
[2024-01-26 16:13] LABS: Alanine Aminotransferase 39 U/L (6-50); Albumin Level 3.8 g/dL (3.5-5.1); Alkaline Phosphatase 76 U/L (38-126); Anion Gap 7 mmol/L (8-16); Aspartate Amino Transferase 28 U/L (17-59); Blood Urea Nitrogen 10 mg/dL (9-20); CRP 4.2 mg/dL (<1.0); Calcium 9.2 mg/dL (8.4-10.2); Carbon Dioxide 24 mmol/L (22-30); Chloride 100 mmol/L (98-107); Estimated CRCL calculation 87 ml/min; Estimated Glomerular Filt Rate > 60; Glucose 127 mg/dL (65-110); Potassium 3.4 mmol/L (3.4-5.0); Sodium 131 mmol/L (137-145)
[2024-01-26 16:19] LABS: NT Pro B Type Natriuretic Pept 33 pg/mL (19.9-100)
--- NOTE | 2024-01-26 17:29 | ED.GENADULT ---
HPI - General Adult General Chief complaint: Extremity Injury, Lower Stated complaint: bilat foot pain Time Seen by Provider: 01/26/24 15:20 Source: patient Mode of arrival: wheelchair Limitations: no limitations History of Present Illness HPI narrative: 53-year-old with a history of arthritis here with a complaint of multiple joint pain for past few days. Patient states that he is unable to get out of bed because of increased pain in his both feet. He denies any fever or chills no history of gout. Onset (ago): week(s) (1) Location: upper extremity and lower extremity Radiation: non-radiation Severity: moderate Quality: aching Pain Consistency: constant Relieving factors: none Exacerbating factors: none Associated symptoms: denies other symptoms Treatments prior to arrival: none Related Data Home Medications Medication Instructions Recorded Confirmed escitalopram oxalate 20 mg tablet mg 07/06/23 01/22/24 Allergies Allergy/AdvReac Type Severity Reaction Status Date / Time No Known Allergies Allergy Verified 01/26/24 15:18 Review of Systems Review of Systems: All systems reviewed & are unremarkable except as noted in HPI and below Constitutional: Constitutional: Reports no additional constitutional complaints Eyes: Eyes: Reports no additional eye complaints ENT: Reports system reviewed and no additional complaints, except as documented Cardiovascular: Cardiovascular: Reports no additional cardiovascular complaints Respiratory: Respiratory: Reports no additional respiratory complaints Gastrointestinal: Gastrointestinal: Reports no additional gastrointestinal complaints Musculoskeletal: Musculoskeletal: Reports as per HPI Integumentary/Breasts: Skin/Breast: Reports system reviewed and no additional complaints, except as docu PMFSH Past Medical History Medical History Fracture of scaphoid Family History Family History Mother Family history of Parkinson's disease Family history of Alzheimer's disease Father Family history of heart disease in male family member before age 55 Other Family history of arthritis Family history of malignant neoplasm Social History Social History Smoking status: Heavy tobacco smoker Second hand tobacco smoke exposure: Yes Alcohol intake: current Course Course Emergency Course: Patient comfortably resting in chair discomfort informed about his lab work will give him a dose of prednisone advised him to take steroids as prescribed, follow with his primary doctor. Vital Signs Vital signs: Vital Signs Temperature 36.4 C L 01/26/24 15:16 Pulse Rate 98 01/26/24 15:16 Respiratory Rate 19 01/26/24 15:16 Blood Pressure 116/72 01/26/24 15:16 Pulse Oximetry 99 01/26/24 15:16 Oxygen Delivery Room Air 01/26/24 15:16 Temperature 36.4 C L 01/26/24 15:16 Pulse Rate 98 01/26/24 15:16 Respiratory Rate 19 01/26/24 15:16 Blood Pressure 116/72 01/26/24 15:16 Pulse Oximetry 99 01/26/24 15:16 Oxygen Delivery Room Air 01/26/24 15:16 Medical Decision Making Vital Signs Vital Signs: Vital Signs Temperature 36.4 C L 01/26/24 15:16 Pulse Rate 98 01/26/24 15:16 Respiratory Rate 19 01/26/24 15:16 Blood Pressure 116/72 01/26/24 15:16 Pulse Oximetry 99 01/26/24 15:16 Oxygen Delivery Room Air 01/26/24 15:16 Temperature 36.4 C L 01/26/24 15:16 Pulse Rate 98 01/26/24 15:16 Respiratory Rate 19 01/26/24 15:16 Blood Pressure 116/72 01/26/24 15:16 Pulse Oximetry 99 01/26/24 15:16 Oxygen Delivery Room Air 01/26/24 15:16 Lab Data 01/26/24 15:38 01/26/24 15:38 Labs: Lab Results 01/26/24 Range/Units 15:38 WBC 7.6 (4.5-10.0) K/mm3 RBC 3.91 L (4.6-6.20) M/mm3 Hgb 11.4 L (14.0
[2024-01-26] MEDS: predniSONE 20 MG TABLET 60 MG PO (18:00)
== END 2024-01-26 18:06 | disposition home or self-care (01) ==
PROVIDERS: Emergency Provider Family Medicine; PCP Internal Medicine
DX: M25.572 Pain in left ankle and joints of left foot (principal); M25.571 Pain in right ankle and joints of right foot; F17.200 Nicotine dependence, unspecified, uncomplicated
CPT/HCPCS: 36415; 80053; 83880; 84550; 85025; 86140; 99283; J7512

== ENCOUNTER 2024-02-05 17:31 | Emergency (ER) | payer OTHER, MEDICAID, SELFPAY ==
[2024-02-05 17:36] VITALS: BP 118/80; PULSE 99; RESP 20; TEMP 36.6; O2SAT 100
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
[2024-02-05 21:40] VITALS: BP 115/76; PULSE 98; RESP 19; O2SAT 100
== END 2024-02-05 21:42 | disposition home or self-care (01) ==
PROVIDERS: Emergency Provider Physician Assistant; PCP Internal Medicine
DX: S61.210A Laceration without foreign body of right index finger without damage to nail, initial encounter (principal); F17.200 Nicotine dependence, unspecified, uncomplicated; W26.8XXA Contact with other sharp object(s), not elsewhere classified, initial encounter
CPT/HCPCS: 12001; 99282

== ENCOUNTER 2024-02-12 10:26 | Emergency (ER) | payer OTHER, MEDICAID, SELFPAY ==
[2024-02-12 10:29] VITALS: BP 121/81; PULSE 100; RESP 17; TEMP 36.6; O2SAT 100
[2024-02-12 12:57] VITALS: BP 102/79; PULSE 107; RESP 16; O2SAT 100
[2024-02-12 14:24] VITALS: BP 104/68; PULSE 94; RESP 15; O2SAT 99
--- NOTE | 2024-02-12 14:41 | ED.LOWEXIN ---
HPI - Extremity Injury (Lower) General Chief Complaint: Extremity Injury, Lower Stated Complaint: foot pain Time Seen by Provider: 02/12/24 14:38 Source: patient Mode of arrival: ambulatory Limitations: no limitations History of Present Illness HPI Narrative: 53-year-old gentleman who comes to the emergency department with complaint of pain and swelling at the bottom of both of his feet. he has been trying to take ibuprofen states he was previously on steroids. He is also having headache. He says he has a history of arthritis and gout. He also states he lost the contact information to arrange follow-up with Dr. Morrison whom he is supposed to see to be evaluated for possible hand surgery. in addition he states that he is out of his antiepileptic medication and a psych medication though can not recall names of either. Related Data Home Medications Medication Instructions Recorded Confirmed escitalopram oxalate 20 mg tablet mg 07/06/23 01/22/24 Allergies Allergy/AdvReac Type Severity Reaction Status Date / Time No Known Allergies Allergy Verified 02/12/24 12:55 [facility] Past Medical History Medical History Arthritis Fracture of scaphoid Gout Seizure disorder Family History Family History Mother Family history of Parkinson's disease Family history of Alzheimer's disease Father Family history of heart disease in male family member before age 55 Other Family history of arthritis Family history of malignant neoplasm Social History Social History (Updated 02/12/24 @ 15:04 by Prema De Jesus MD) Smoking status: Heavy tobacco smoker Second hand tobacco smoke exposure: Yes Alcohol intake: current Additional living arrangements comments: housing instability (has moved 3 times recently) Exam Narrative: GENERAL: well-nourished, and in no acute distress. HEAD: Normocephalic, atraumatic. EYES: Non injected, non icteric. ENT: Nares clear, no rhinorrhea or epistaxis. Poor dentition NECK: Supple. CHEST: speaking in full sentences. No respiratory distress. HEART: Regular rate and rhythm. . bilateral DP pulses +2 ABDOMEN: Soft, nondistended. EXTREMITIES: Normal range of motion. No edema. 5/5 strength with ankle bilateral dorsiflexion and plantar flexion. mild tenderness to palpation of the plantar aspect of bilateral feet. Commercial wrist splint in place SKIN: Warm, dry, no rash. NEURO: No focal deficits. Alert and oriented . PSYCH: Normal mood and affect. Course Vital Signs Vital signs: Vital Signs Temperature 97.8 F 02/12/24 10:29 Pulse Rate 100 02/12/24 10:29 Respiratory Rate 17 02/12/24 10:29 Blood Pressure 121/81 02/12/24 10:29 Pulse Oximetry 100 02/12/24 10:29 Oxygen Delivery Room Air 02/12/24 10:29 Temperature 98.2 F 02/12/24 15:16 Pulse Rate 84 02/12/24 15:16 Respiratory Rate 15 02/12/24 15:16 Blood Pressure 99/69 L 02/12/24 15:16 Pulse Oximetry 98 02/12/24 15:16 Oxygen Delivery Room Air 02/12/24 10:29 MDM - Extremity Injury (Lower) MDM Narrative Medical decision making narrative: patient presents with complaint of pain and swelling at the bottom of his bilateral feet. He states he is on his feet a lot. He does endorse that the 1st step in the morning is the most painful which sounds consistent with a diagnosis of plantar fasciitis. Will defer further imaging the patient will benefit from education and pain medication for this. in the emergency department he is afebrile with vital signs within normal limits on 2 occasions Exam is otherwise unremarkable. patient has social determine its of health that affect his care including: housing instability as he has moved frequently; questionably undomiciled and or transiently housed In conjunction with fire extinguisher charger, I was able to see that patient had rec
[2024-02-12] MEDS: KETOROLAC 30 MG/ML VIAL (*BKC) 15 MG IM (14:59)
[2024-02-12] MEDS: ACETAMINOPHEN 500 MG TABLET 1000 MG PO (15:00)
[2024-02-12 15:16] VITALS: BP 99/69; PULSE 84; RESP 15; TEMP 36.8; O2SAT 98
== END 2024-02-12 15:29 | disposition home or self-care (01) ==
LOC: ANHED 15:08
PROVIDERS: Emergency Provider Student in an Organized Health Care Education/Training Program; PCP Internal Medicine
DX: M72.2 Plantar fascial fibromatosis (principal); Z76.0 Encounter for issue of repeat prescription; F17.210 Nicotine dependence, cigarettes, uncomplicated; M19.90 Unspecified osteoarthritis, unspecified site; G40.909 Epilepsy, unspecified, not intractable, without status epilepticus
CPT/HCPCS: 96372; 99283; A9270; J1885

== ENCOUNTER 2024-02-29 12:31 | Emergency (ER) | payer OTHER, MEDICAID, SELFPAY ==
[2024-02-29 12:35] VITALS: BP 129/97; PULSE 110; RESP 18; TEMP 36.8; O2SAT 98
--- NOTE | 2024-02-29 12:40 | ED.GENADULT ---
HPI - General Adult General Chief complaint: Extremity Injury, Lower <Moe Scanlon APRN - Last Filed: 02/29/24 12:43> Stated complaint: MULTIPLE C/O <Moe Scanlon APRN - Last Filed: 02/29/24 12:43> Time Seen by Provider: 02/29/24 13:40 <Moe Scanlon APRN - Last Filed: 02/29/24 12:43> 53-year-old male history of rheumatoid arthritis and seizure disorder presents to the emergency room for evaluation of worsening left foot pain and increasing swelling in both hands. Patient states he has been managing his RA with 600 mg ibuprofen and [id number] Tylenol. States his breastfeeding peer counselor is [place] Jason Tovar had no follow-up for several years. Patient denies any known injury or trauma. No other complaints at this time Focused HPI: GENERAL: Well-appearing, well-nourished, and in no acute distress. HEAD: Normocephalic, atraumatic. CHEST: Clear to auscultation. No respiratory distress. HEART: Regular rate and rhythm. NEURO: Alert and oriented x3. Patient screened in triage and initial orders placed. Additional care and disposition to be based upon diagnostic testing and treatment. <Moe Scanlon APRN - Last Filed: 02/29/24 12:43> Related Data Home medications: Home Medications Medication Instructions Recorded Confirmed escitalopram oxalate 20 mg tablet mg 07/06/23 01/22/24 <Moe Scanlon APRN - Last Filed: 02/29/24 12:43> Allergies/adverse reactions: Allergies Allergy/AdvReac Type Severity Reaction Status Date / Time No Known Allergies Allergy Verified 02/12/24 12:55 <Moe Scanlon APRN - Last Filed: 02/29/24 12:43> PMFSH Past Medical History Medical History: Medical History Arthritis Fracture of scaphoid Gout Seizure disorder <Moe Scanlon APRN - Last Filed: 02/29/24 12:43> Family History Family History: Family History Mother Family history of Parkinson's disease Family history of Alzheimer's disease Father Family history of heart disease in male family member before age 55 Other Family history of arthritis Family history of malignant neoplasm <Moe Scanlon APRN - Last Filed: 02/29/24 12:43> Social History Social History: Social History (Updated 02/12/24 @ 15:04 by Prema De Jesus MD) Smoking status: Heavy tobacco smoker Second hand tobacco smoke exposure: Yes Alcohol intake: current Additional living arrangements comments: housing instability (has moved 3 times recently) <Moe Scanlon, HOME ECONOMIST CONSUMER SERVICE - Last Filed: 02/29/24 12:43> Exam Narrative: APPEARANCE: Well appearing, no pain, no distress, well-nourished. HEAD: normocephalic, atraumatic. EYES: PERRLA/EOMI, conjunctivae clear. NOSE: Normal no drainage EARS:TMS clear with good light reflex. THROAT: Pharynx clear, no exudate. NECK: Supple. No adenopathy, no masses. RESPIRATORY: Airway patent, respirations nonlabored. Clear to auscultation bilaterally, no rales, rhonchi, wheezing. CARDIOVASCULAR: Regular rate and rhythm without murmurs rubs or gallops. ABDOMINAL: Soft, nontender, nondistended, normal bowel sounds MUSCULOSKELETAL: Moves all extremities. Strength/ROM intact, No edema, No calf tenderness. NEURO: Alert. Cranial nerves II through XII intact. grossly intact SKIN: Warm, dry. Normal Color <Antonio Schilling MD - Last Filed: 03/01/24 21:23> Course Vital Signs Vital signs: Vital Signs Temperature 98.2 F 02/29/24 12:35 Pulse Rate 110 H 02/29/24 12:35 Respiratory Rate 18 02/29/24 12:35 Blood Pressure 129/97 H 02/29/24 12:35 Pulse Oximetry 98 02/29/24 12:35 Oxygen Delivery Room Air 02/29/24 12:35 Temperature 98.2 F 02/29/24 12:35 Pulse Rate 89 02/29/24 15:45 Respiratory Rate 20 02/29/24 15:45 Blood Pressure 120/77 02/29/24 15:45 Pulse Oximetry 98 02/29/24 15:45 [employer]
[2024-02-29 13:58] LABS: Basophils Percent Auto 0.3 % (0.2-1.2); Eosinophils Absolute Auto 0.1 K/mm3 (0-0.3); Eosinophils Percent Auto 1.2 % (0-4.4); Hematocrit 36.4 % (42.0-52.0); Immature Granulocyte Absolute 0.04 K/mm3 (0.00-0.031); Immature Granulocyte Percent A 0.5 % (0-0.5); Lymphocytes Absolute Auto 1.62 K/mm3 (0.9-3.2); Lymphocytes Percent Auto 21.6 % (18.3-44.2); Mean Corpuscular Hemoglobin 29.6 pg (26-34); Mean Corpuscular Volume 89.7 fl (80-100); Mean Platelet Volume 8.7 fl (7.4-10.4); Monocytes Absolute Auto 0.4 K/mm3 (0.1-0.6); Monocytes Percent Auto 5.7 % (2.6-8.5); Neutrophils Absolute Auto 5.3 K/mm3 (1.3-6.7); Neutrophils Percent Auto 70.7 % (45.5-73.1); Platelet Count Result 358 k/mm3 (150-375); Red Blood Count 4.06 M/mm3 (4.6-6.20); White Blood Count 7.5 K/mm3 (4.5-10.0)
[2024-02-29 14:19] LABS: Alanine Aminotransferase 15 U/L (6-50); Alkaline Phosphatase 66 U/L (38-126); Anion Gap 8 mmol/L (4-12); Aspartate Amino Transferase 20 U/L (17-59); Bilirubin,Total 0.5 mg/dL (0.2-1.3); Blood Urea Nitrogen 9 mg/dL (9-20); CRP 1.4 mg/dL (<1.0); Calcium 9.2 mg/dL (8.4-10.2); Carbon Dioxide 24 mmol/L (22-30); Chloride 104 mmol/L (98-107); Estimated CRCL calculation 90 ml/min; Estimated Glomerular Filt Rate > 60; Glucose 117 mg/dL (65-110); Sodium 136 mmol/L (137-145)
[2024-02-29 14:53] LABS: Appearance Urine Clear (Clear); Bilirubin Urine Negative (Negative); Blood Urine Negative (Negative); Color Urine Yellow (Yellow); Glucose Urine UA Negative (Negative); Ketones Urine Negative (Negative); Leukocyte Esterase Ur Negative LEU/UL (Negative); Nitrate Urine Negative (Negative); Protein Urine Negative (Negative); Specific Grav Ur 1.005 (1.001-1.035); Urobilinogen Urine 0.2 mg/dL (<2.0); pH Urine 6.5 (5.0-9.0)
[2024-02-29 14:54] LABS: Add Urine Microscopic? NO
[2024-02-29 15:15] LABS: Erythrocyte Sedimentation Rate 31 mm/hr (0-20)
[2024-02-29] MEDS: HYDROcodone/acetaminophen (*CRX) 5-325 MG TABLET 1 TAB PO (15:42)
[2024-02-29] MEDS: predniSONE 40 MG, predniSONE 10 MG 50 MG PO (15:43)
[2024-02-29 15:45] VITALS: BP 120/77; PULSE 89; RESP 20; O2SAT 98
== END 2024-02-29 15:50 | disposition home or self-care (01) ==
PROVIDERS: Nurse Practitioner Family; Emergency Provider Emergency Medicine; PCP Internal Medicine
DX: M06.9 Rheumatoid arthritis, unspecified (principal); G40.909 Epilepsy, unspecified, not intractable, without status epilepticus; F17.200 Nicotine dependence, unspecified, uncomplicated
CPT/HCPCS: 36415; 80053; 81003; 85025; 85652; 86140; 99283; A9270; J7512

== ENCOUNTER 2024-05-08 13:45 | Emergency (ER) | payer OTHER, MEDICAID, SELFPAY ==
--- NOTE | ~2024-05-08 | XR_ITS ---
EXAM: XR wrist RT min 3V DATE: 05/08/2024 15:08 HISTORY: wrist pain CHRONIC . COMPARISON: 01/02/2024, 11/27/2017. FINDINGS: Decreased mineralization. Uncomplicated appearing screw and plate fixation of the fifth me tacarpal shaft. Screw fixation of the scaphoid. Persistent lucency in the proximal aspect of the scap hoid without displacement. Nondisplaced, mildly comminuted subacute fracture of the distal right ulna . No acute fracture or dislocation. No lytic or blastic lesion. Degenerative changes at the first CMC joint, radiocarpal joint, and first and second proximal carpal rows. No erosion. Soft tissue swellin g of the lateral wrist. IMPRESSION: Subacute, nondisplaced, mildly comminuted distal right ulnar fracture. Reviewed, dictated and finalized at location K. IMPRESSION: Subacute, nondisplaced, mildly comminuted distal right ulnar fractu re.
[2024-05-08 13:47] VITALS: BP 141/87; PULSE 100; RESP 16; TEMP 36.3; O2SAT 100
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
[2024-05-08] MEDS: methylPREDNISolone SOD SUCC 125 MG VIAL IM (15:10)
--- NOTE | 2024-05-08 15:39 | PCCCNOTE ---
CC called to ED for resources for the pt. Pt is homeless. Pt given Homeless shelters and housing information. Pt also given lunch and bus tokens. Pt verbalized no further needs at this time.
--- NOTE | 2024-05-13 08:43 | PC.NURSE ---
LATE ENTRY This note is being entered to document information to the patient's record. The following information was omitted on [05/08/24], by [Rich Feliciano for Ulnar Gutter x1
== END 2024-05-08 15:50 | disposition home or self-care (01) ==
PROVIDERS: Emergency Provider Emergency Medicine; PCP Internal Medicine
DX: S52.691A Other fracture of lower end of right ulna, initial encounter for closed fracture (principal); G40.909 Epilepsy, unspecified, not intractable, without status epilepticus; M19.90 Unspecified osteoarthritis, unspecified site; F17.200 Nicotine dependence, unspecified, uncomplicated; Z59.819 Housing instability, housed unspecified; Z79.899 Other long term (current) drug therapy; X50.0XXA Overexertion from strenuous movement or load, initial encounter
CPT/HCPCS: 29125; 73110; 96372; 99284; J2919

== ENCOUNTER 2024-06-04 15:09 | Emergency (ER) | payer OTHER, MEDICAID, SELFPAY ==
[2024-06-04 15:20] VITALS: BP 112/83; PULSE 106; RESP 18; O2SAT 100
--- NOTE | 2024-06-04 15:45 | ED.SKABFB ---
HPI - Skin/Abscess/Foreign Bdy General Chief complaint: Skin/Abscess/Foreign Body Stated complaint: Rash Source: patient, RN notes reviewed and old records reviewed Mode of arrival: ambulatory Limitations: no limitations History of Present Illness HPI narrative: Patient presents with complaints of itchy rash to face, bilateral arms, bilateral legs. 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 He reports rash has been present for 3 days, worsening. He has not done anything for his symptoms. He denies any injury or trauma, voices no other concerns or complaints at this time. Is having no other allergic symptoms Related Data Home Medications Medication Instructions Recorded Confirmed escitalopram oxalate 20 mg tablet 20 mg PO DAILY 07/06/23 06/04/24 Allergies Allergy/AdvReac Type Severity Reaction Status Date / Time No Known Allergies Allergy Verified 06/04/24 15:10 Review of Systems Review of Systems: All systems reviewed & are unremarkable except as noted in HPI and below Constitutional: Constitutional: Reports no additional constitutional complaints ENT: Reports system reviewed and no additional complaints, except as documented Cardiovascular: Cardiovascular: Reports no additional cardiovascular complaints Respiratory: Respiratory: Reports no additional respiratory complaints Gastrointestinal: Gastrointestinal: Reports no additional gastrointestinal complaints Integumentary/Breasts: Skin/Breast: Reports pruritus and Reports rash Allergic/Immunologic: Allergic/Immunologic: Reports as per HPI, Denies lip swelling, Denies throat swelling, Denies tongue swelling and Denies wheezing PMFSH Past Medical History Medical History Arthritis Fracture of scaphoid Gout Seizure disorder Family History Family History Mother Family history of Parkinson's disease Family history of Alzheimer's disease Father Family history of heart disease in male family member before age 55 Other Family history of arthritis Family history of malignant neoplasm Social History Social History Smoking status: Heavy tobacco smoker Second hand tobacco smoke exposure: Yes Alcohol intake: current Additional living arrangements comments: housing instability (has moved 3 times recently) Comments At the time of my signature, I reviewed and agree with the nursing past medical, surgical, social, and family history. There is no relevant family history pertinent to the patient complaint. Exam Const: General: cooperative, no acute distress, alert and awake Orientation/consciousness: oriented to person, oriented to place and oriented to time HENMT: Head: normal to inspection Resp: Effort & Inspection: normal respiratory effort and able to speak in complete sentences Auscultation: clear to auscultation bilaterally, no crackles, no rales, no rhonchi and no wheezes Cardio: Palpation: normal PMI Rate: regular rate Rhythm: regular rhythm Heart sounds: S1 normal heart sound present and S2 normal heart sound present Skin: General skin exam: rashes (Rash consistent with poison chelo noted to face, limbs. Eyes are spared) Neuro: General: oriented to person, oriented to place and oriented to time Cranial nerves: Yes CN's II-XII intact bilaterally Psych: Appearance: grossly normal Thought process: Normal thought process present Insight: Good insight present (Psych) Judgement: Good judgement present (Psych) Course Course Level of Care: Express Care Visit Vital Signs Vital signs: Vital Signs Pulse Rate 106 H 06/04/24 15:20 Respiratory Rate 18 06/04/24 15:20 Blood Pressure 112/83 06/04/24 15:20 Pulse Oximetry 100 06/04/24 15:20 Oxygen Delivery Room Air 06/04/24 15:20 Puls
== END 2024-06-04 16:35 | disposition home or self-care (01) ==
PROVIDERS: Emergency Provider Nurse Practitioner Family; PCP Physician Assistant
DX: L23.7 Allergic contact dermatitis due to plants, except food (principal); F17.200 Nicotine dependence, unspecified, uncomplicated; M10.9 Gout, unspecified; M19.90 Unspecified osteoarthritis, unspecified site
CPT/HCPCS: 99213; G0463